=== PATIENT | female | born 1980 | race Caucasian/White ===

== ENCOUNTER 2018-01-18 16:29 | Emergency (ER) | payer SELFPAY ==
[2018-01-18] MEDS ORDERED: diphenhydrAMINE 50 MG/ML VIAL ONE (17:07)
[2018-01-18] MEDS ORDERED: Ondansetron HCl/PF 4 MG/2 ML Vial ONE (18:04)
[2018-01-18] MEDS ORDERED: methylPREDNISolone Sod Succ/PF 125 MG/2 ML VIAL ONE (18:34)
[2018-01-18] MEDS ORDERED: Acetaminophen 500 MG TAB ONE (18:34)
[2018-01-18] MEDS ORDERED: Sodium Chloride 0.9% 1,000 ML IV SCH (18:45)
[2018-01-18] MEDS ORDERED: Magnesium 2 GM/NS 0.9% 100 ML 2 GM in Premix Bag 1 BAG IVPB SCH (18:45)
== END 2018-01-18 20:07 | disposition home or self-care (01) ==
LOC: ERS 16:29
DX: R51 Headache (principal); J45.909 Unspecified asthma, uncomplicated; F31.9 Bipolar disorder, unspecified; F17.210 Nicotine dependence, cigarettes, uncomplicated; F20.9 Schizophrenia, unspecified
CPT/HCPCS: 93005; 96361; 96365; 96374; 96375; J1200; J2405; J2930; J3475

== ENCOUNTER 2018-06-13 20:04 | Emergency (ER) | payer SELFPAY ==
[2018-06-13] MEDS ORDERED: Ondansetron ODT 4 MG TAB ONE (21:13)
[2018-06-13 21:22] LABS: #Basophils 0.1 thou/uL (0.0-0.2); #Eosinphils 0.1 thou/uL (0.0-0.7); #Monocytes 0.8 thou/uL (0.11-0.59); #Neutrophils 5.9 thou/uL (1.40-6.50); %Basophils 0.7 % (0.0-1.0); %Eosinophils 1.5 % (0.0-10.0); %Lymphocytes 30.4 % (21.0-51.0); %Monocytes 8.1 % (0.0-10.0); %Neutrophils 59.3 % (42.0-75.0); Hemoglobin 14.6 g/dL (12.0-16.0); Mean Corpuscular HGB CONC 33.5 g/dL (32.0-36.0); Mean Corpuscular Hemoglobin 29.5 pg (27.0-31.0); Mean Corpuscular Volume 88.1 fL (78.0-98.0); Mean Platelet Volume 7.6 fL (7.4-10.4); Platelet Count 269 thou/uL (130-400); RBC Distribution Width 12.9 % (11.5-14.5); Red Blood Cell (RBC) Count 4.93 mill/uL (4.20-5.40); White Blood Cell (WBC) Count 9.9 thou/uL (4.8-10.8)
[2018-06-13 21:27] LABS: BHCG - Serum Negative (NEGATIVE); Pregs Control Background? CLEAR/WHITE (CLR/WHITE); Pregs Control Bar Appear? YES (CONTROL BAR)
[2018-06-13 21:42] LABS: ALT (SGPT) 18 U/L (8-55); AST (SGOT) 14 U/L (5-34); Albumin 4.1 g/dL (3.5-5.0); Alkaline Phosphatase 69 U/L (40-150); Anion Gap 13 mmol/L (10-20); BUN (Urea Nitrogen) 9 mg/dL (7.0-18.7); Bilirubin, Total 0.4 mg/dL (0.2-1.2); Calc. Creatinine Clearance 0 mL/min (70-130); Calcium 9.4 mg/dL (7.8-10.44); Carbon Dioxide 22 mmol/L (22-29); Chloride 105 mmol/L (98-107); Estimated GFR-MDRD Greater than 90; Globulin 3.5 g/dL (2.4-3.5); Glucose 95 mg/dL (70-105); Lipase 23 U/L (8-78); Potassium 3.9 mmol/L (3.5-5.1); Protein, Total 7.6 g/dL (6.0-8.3); Sodium 136 mmol/L (136-145)
[2018-06-13] MEDS ORDERED: Ondansetron PF 4 MG/2 ML Vial ONE (22:21)
[2018-06-13] MEDS ORDERED: Dicyclomine 20 MG TAB ONE (22:49)
[2018-06-13 23:25] LABS: Bilirubin Small (Negative); Blood, Urine Negative (Negative); Clarity CLEAR (Clear); Glucose, Urine (Dipstick) Negative (Negative); Leukocyte Negative (Negative); Nitrite Negative (Negative); Protein, Urine (Dipstick) Negative (Neg-Trace); Specific Gravity, Urine 1.028 (1.002-1.036); pH, Urine 5.5 (5.0-9.0)
== END 2018-06-14 00:17 | disposition home or self-care (01) ==
LOC: ERS 20:04
DX: R11.2 Nausea with vomiting, unspecified (principal); R19.7 Diarrhea, unspecified; J45.909 Unspecified asthma, uncomplicated; G43.909 Migraine, unspecified, not intractable, without status migrainosus; F31.9 Bipolar disorder, unspecified; F20.9 Schizophrenia, unspecified; F17.210 Nicotine dependence, cigarettes, uncomplicated; Z79.51 Long term (current) use of inhaled steroids
CPT/HCPCS: 36415; 80053; 81003; 83690; 84703; 85025; 87086; 96361; 96374; J2405; Q0162

== ENCOUNTER 2018-11-03 18:02 | Emergency (ER) | payer OTHER, SELFPAY ==
--- NOTE | 2018-11-03 19:04 | RAD ---
TWO VIEW CHEST: 11/03/18 HISTORY: Cough. No evidence of infiltrate. The heart and mediastinum unremarkable. IMPRESSION: No acute finding. POS: [facility]
[2018-11-03] MEDS ORDERED: Albuterol Sulfate 1.25 MG/3 ML NEB ONE (19:06)
== END 2018-11-03 19:39 | disposition home or self-care (01) ==
LOC: ERS 18:02
DX: J20.9 Acute bronchitis, unspecified (principal); R19.7 Diarrhea, unspecified; J45.909 Unspecified asthma, uncomplicated; Z87.01 Personal history of pneumonia (recurrent); F20.9 Schizophrenia, unspecified; F31.9 Bipolar disorder, unspecified; F17.210 Nicotine dependence, cigarettes, uncomplicated; M19.90 Unspecified osteoarthritis, unspecified site; Z79.52 Long term (current) use of systemic steroids; Z79.899 Other long term (current) drug therapy
CPT/HCPCS: 71046; 94640

== ENCOUNTER 2019-08-08 10:00 | Outpatient (CLI) | payer OTHER ==
--- NOTE | 2019-08-08 10:15 | RAD ---
EXAM: XR Lumbar Spine 2 Or 3 View PROVIDED CLINICAL HISTORY: Disability exam COMPARISON: 10/29/2018 FINDINGS: 5 nonrib-bearing lumbar-type vertebral bodies are redemonstrated. Lumbar alignment appears normal. Di sc space height loss and endplate degenerative changes noted at L3-4 and L4-5. Lower lumbar spine facet arthritis. Vertebral body heights appear preserved. Pedicles appear intact. IMPRESSION: Lower lumbar disc and facet degenerative change.
== END 2019-08-08 10:01 | disposition home or self-care (01) ==
LOC: BICRAD 10:00
PROVIDERS: ATTEND Internal Medicine
DX: Z02.71 Encounter for disability determination (principal); M47.816 Spondylosis without myelopathy or radiculopathy, lumbar region
CPT/HCPCS: 72100

== ENCOUNTER 2019-08-23 12:32 | Emergency (ER) | payer SELFPAY ==
[2019-08-23] MEDS ORDERED: Ondansetron ODT 4 MG TAB ONE (14:10)
--- NOTE | 2019-08-23 14:25 | RAD ---
XR Chest Pa Lat STANDARD HISTORY: Cough COMPARISON: 11/03/2018 FINDINGS: The heart size is normal. The lungs are well expanded without focal areas of consolidation, pneumothorax or pleural effusions. IMPRESSION: No radiographic evidence of acute cardiopulmonary process.
== END 2019-08-23 16:15 | disposition home or self-care (01) ==
LOC: ERS 12:32
DX: J06.9 Acute upper respiratory infection, unspecified (principal); R11.0 Nausea; G43.909 Migraine, unspecified, not intractable, without status migrainosus; F41.9 Anxiety disorder, unspecified; F31.9 Bipolar disorder, unspecified; F20.9 Schizophrenia, unspecified; F43.10 Post-traumatic stress disorder, unspecified; Z71.6 Tobacco abuse counseling
CPT/HCPCS: 71046; 87081; 87430; 87633; 87804; 99406; Q0162

== ENCOUNTER 2019-08-28 07:12 | Emergency (ER) | payer SELFPAY | END 2019-08-28 07:42 | disposition home or self-care (01) | LOC: ERS 07:12 | DX: J02.0 Streptococcal pharyngitis (principal); G43.909 Migraine, unspecified, not intractable, without status migrainosus; F31.9 Bipolar disorder, unspecified; F41.9 Anxiety disorder, unspecified; F20.9 Schizophrenia, unspecified; F43.10 Post-traumatic stress disorder, unspecified; F17.210 Nicotine dependence, cigarettes, uncomplicated | CPT/HCPCS: 99283 ==

== ENCOUNTER 2020-06-25 16:23 | Emergency (ER) | payer SELFPAY ==
[2020-06-25] MEDS ORDERED: Dexamethasone 4 mg/ml Vial ONE (17:37)
[2020-06-25] MEDS ORDERED: Acetaminophen 500 MG TAB ONE (17:37)
[2020-06-25] MEDS ORDERED: Bicillin LA 1.2 MILLION UNITS/2 ML SYRINGE ONE (17:38)
== END 2020-06-25 17:46 | disposition home or self-care (01) ==
LOC: ERS 16:23
DX: J02.0 Streptococcal pharyngitis (principal); F17.210 Nicotine dependence, cigarettes, uncomplicated
CPT/HCPCS: 87430; 96372; 99283; J0561; J1100

== ENCOUNTER 2021-06-11 08:04 | Emergency (ER) | payer SELFPAY ==
[2021-06-11] MEDS ORDERED: Dexamethasone 10 MG/ML VIAL ONE (09:42)
[2021-06-11] MEDS ORDERED: Bicillin LA 1.2 MILLION UNITS/2 ML SYRINGE ONE (09:42)
== END 2021-06-11 10:06 | disposition home or self-care (01) ==
LOC: ERS 08:04
DX: J02.9 Acute pharyngitis, unspecified (principal); G43.909 Migraine, unspecified, not intractable, without status migrainosus; F17.210 Nicotine dependence, cigarettes, uncomplicated
CPT/HCPCS: 87430; 96372; 99283; J0561; J1100

== ENCOUNTER 2022-02-20 14:21 | Emergency (ER) | payer SELFPAY ==
[2022-02-20] MEDS ORDERED: Acetaminophen 500 MG TAB ONE (15:14)
[2022-02-20] MEDS ORDERED: diphenhydrAMINE 50 MG/ML VIAL ONE (15:14)
[2022-02-20] MEDS ORDERED: Magnesium 2 GM/50 ML BAG (IN WATER) ONE (15:14)
[2022-02-20] MEDS ORDERED: Promethazine HCl 12.5 MG in Sodium Chloride 0.9% 50 ML IVPB SCH (17:00)
== END 2022-02-20 17:24 | disposition home or self-care (01) ==
LOC: ERS 14:21
DX: G43.909 Migraine, unspecified, not intractable, without status migrainosus (principal); M17.11 Unilateral primary osteoarthritis, right knee; K02.9 Dental caries, unspecified; F17.210 Nicotine dependence, cigarettes, uncomplicated
CPT/HCPCS: 96365; 96366; 96367; 96375; J1200; J2550; J3475

== ENCOUNTER 2023-11-03 12:47 | Emergency (ER) | payer OTHER, SELFPAY ==
[2023-11-03 13:19] LABS: Bacteria/HPF None Seen HPF (None Seen); Bilirubin Negative (Negative); Blood, Urine Negative (Negative); CAUTI Indications for Culture Pelvic or flank pain; Clarity Clear (Clear); Glucose, Urine (Dipstick) Normal (Negative); Ketone, Urine Negative (Negative); Leukocyte Negative Leu/uL (Negative); Nitrite Negative (Negative); Protein, Urine (Dipstick) Negative (Neg-Trace); RBC/HPF 0-3 HPF (0-3); Specific Gravity, Urine 1.007 (1.002-1.036); Squamous Epithelial 0-3 HPF (0-3); Urobilinogen Normal mg/dL (Less than 2); WBC/HPF 0-3 HPF (0-3); pH, Urine 7.5 (5.0-9.0)
[2023-11-03 13:23] LABS: Urine Culture Reflex No No
[2023-11-03 13:27] LABS: #Basophils Less than 0.03 10x3/uL (0.0-0.2); %Basophils 0.3 % (0.0-1.0); %Eosinophils 2.2 % (0.0-10.0); %Lymphocytes 26.8 % (21.0-51.0); %Monocytes 9.5 % (0.0-10.0); %Neutrophils 60.9 % (42.0-75.0); Hematocrit 39.3 % (36.0-47.0); Hemoglobin 12.5 g/dL (12.0-16.0); Mean Corpuscular HGB CONC 31.8 g/dL (32.0-36.0); Mean Corpuscular Hemoglobin 28.7 pg (27.0-31.0); Mean Corpuscular Volume 90.3 fL (78.0-98.0); Platelet Count 220 10x3/uL (130-400); RBC Distribution Width 13.9 % (11.5-14.5); Red Blood Cell (RBC) Count 4.35 mill/uL (4.20-5.40)
[2023-11-03 13:42] LABS: ALT (SGPT) 14 U/L (8-55); AST (SGOT) 14 U/L (5-34); Albumin 3.5 g/dL (3.5-5.0); Alkaline Phosphatase 70 U/L (40-110); Anion Gap 12 mmol/L (10-20); BUN (Urea Nitrogen) 9 mg/dL (7.0-18.7); Bilirubin, Total 0.4 mg/dL (0.2-1.2); Calc. Creatinine Clearance 0 mL/min (70-130); Calcium 9.5 mg/dL (7.8-10.44); Carbon Dioxide 23 mmol/L (22-29); Chloride 109 mmol/L (98-107); Estimated GFR 113; Globulin 3.2 g/dL (2.4-3.5); Glucose 91 mg/dL (70-105); Potassium 4.1 mmol/L (3.5-5.1); Protein, Total 6.7 g/dL (6.0-8.3); Sodium 140 mmol/L (136-145)
[2023-11-03 14:33] LABS: BHCG - Serum Negative (NEGATIVE); Pregs Control Background? CLEAR/WHITE (CLR/WHITE); Pregs Control Bar Appear? YES (CONTROL BAR)
== END 2023-11-03 15:46 ==
LOC: ERS 12:47
DX: L03.316 Cellulitis of umbilicus (principal); Z87.891 Personal history of nicotine dependence
CPT/HCPCS: 36415; 74177; 80053; 81001; 83605; 83690; 84703; 85025

== ENCOUNTER 2025-01-13 19:23 | Emergency (ER) | payer SELFPAY ==
[2025-01-13 20:21] LABS: #Basophils 0.03 10x3/uL (0.0-0.2); #Eosinophils 0.13 10x3/uL (0.0-0.7); #Monocytes 0.62 10x3/uL (0.11-0.59); #Neutrophils 4.20 10x3/uL (1.40-6.50); %Basophils 0.4 % (0.0-1.0); %Eosinophils 1.9 % (0.0-10.0); %Lymphocytes 27.1 % (21.0-51.0); %Monocytes 9.0 % (0.0-10.0); %Neutrophils 61.2 % (42.0-75.0); Hematocrit 35.0 % (36.0-47.0); Hemoglobin 10.8 g/dL (12.0-16.0); Mean Corpuscular Hemoglobin 26.0 pg (27.0-31.0); Mean Corpuscular Volume 84.3 fL (78.0-98.0); Platelet Count 262 10x3/uL (130-400); Red Blood Cell (RBC) Count 4.15 mill/uL (4.20-5.40); White Blood Cell (WBC) Count 6.87 10x3/uL (4.8-10.8)
[2025-01-13 20:30] LABS: BHCG - Serum Negative (NEGATIVE); Pregs Control Background? CLEAR/WHITE (CLR/WHITE); Pregs Control Bar Appear? YES (CONTROL BAR)
[2025-01-13 20:43] LABS: ALT (SGPT) 8 U/L (Less than 34); AST (SGOT) 16 U/L (11-34); Albumin 3.8 g/dL (3.1-4.5); Alkaline Phosphatase 78 U/L (40-110); Anion Gap 12 mmol/L (10-20); BUN (Urea Nitrogen) 12 mg/dL (7.0-18.7); Bilirubin, Total 0.2 mg/dL (0.3-1.2); Calc. Creatinine Clearance 0 mL/min (70-130); Calcium 9.4 mg/dL (7.8-10.44); Carbon Dioxide 23 mmol/L (22-29); Chloride 106 mmol/L (98-107); Globulin 3.5 g/dL (2.4-3.5); Glucose 123 mg/dL (70-105); Potassium 3.7 mmol/L (3.5-5.1); Sodium 137 mmol/L (136-145)
[2025-01-13 20:44] LABS: Troponin I 0.011 ng/mL (< 0.028)
[2025-01-13] MEDS ORDERED: Ibuprofen 200 MG TAB ONE (21:11)
[2025-01-13] MEDS ORDERED: Ondansetron PF 4 MG/2 ML Vial ONE (21:11)
== END 2025-01-13 21:27 | disposition home or self-care (01) ==
LOC: ERS 19:23
DX: R51.9 Headache, unspecified (principal); H81.10 Benign paroxysmal vertigo, unspecified ear; Z87.891 Personal history of nicotine dependence
CPT/HCPCS: 36415; 80053; 84484; 84703; 85025; 96374; J2405

== ENCOUNTER 2025-02-10 17:11 | Emergency (ER) | payer SELFPAY ==
[2025-02-10] MEDS ORDERED: Acetaminophen 500 MG TAB ONE (18:11)
[2025-02-10] MEDS ORDERED: Magnesium 2 GM/50 ML BAG (IN WATER) ONE (18:14)
[2025-02-10] MEDS ORDERED: Droperidol 5 MG/2 ML VIAL ONE (19:30)
== END 2025-02-10 20:27 | disposition home or self-care (01) ==
LOC: ERS 17:11
DX: R51.9 Headache, unspecified (principal); F17.210 Nicotine dependence, cigarettes, uncomplicated
CPT/HCPCS: 70450; 96374; 96375; J1790; J2919; J3475